=== PATIENT | male | born 1960 | race Two or more races ===

== ENCOUNTER → 2019-02-09 | Outpatient (CLI) | payer BC, OTHER ==
[2019-02-09 14:39] LABS: Alcohol, Urine < 3.0 mg/dL (0-5); Amphetamine Screen, Urine NEGATIVE (NEGATIVE); Barbiturate Scree,Urine NEGATIVE (NEGATIVE); Benzodiazephine Screen, Urine NEGATIVE (NEGATIVE); Cannabinoid Screen, Urine POSITIVE (NEGATIVE); Cocaine Screen, Urine NEGATIVE (NEGATIVE); Opiate Scree,Urine NEGATIVE (NEGATIVE); Phencyclidine Screen, Urine NEGATIVE (NEGATIVE)
== END | disposition home or self-care (01) ==
LOC: LAB 13:53
PROVIDERS: ATTEND Psychiatry & Neurology Neurology
DX: M47.22 Other spondylosis with radiculopathy, cervical region (principal); M50.122 Cervical disc disorder at C5-C6 level with radiculopathy; G62.9 Polyneuropathy, unspecified
CPT/HCPCS: 80307

== ENCOUNTER → 2019-03-25 | Outpatient (CLI) | payer OTHER ==
[2019-03-25 08:41] LABS: Urine WBC None Seen /hpf (0 - 3)
[2019-03-25 09:04] LABS: Urine Bacteria NONE SEEN /hpf (None Seen); Urine Blood Negative /uL (Negative); Urine Specific Gravity 1.011 (1.001-1.035)
[2019-03-25 09:08] LABS: Basophils # (auto) 0.1 uL; Basophils % (auto) 1.1 % (0.0-2.0); Eosinophils # (auto) 0.1 uL; Eosinophils % (auto) 1.7 % (0.0-7.0); Hematocrit 47.9 % (41.0-53.0); Hemoglobin 16.4 g/dL (13.5-17.5); Lymphocytes # (auto) 1.6 uL; Mean Corpuscular Hemoglobin 32.4 pg (28.0-32.0); Mean Corpuscular Hgb Conc. 34.2 g/dL (32.0-36.0); Mean Corpuscular Volume 94.6 fL (80.0-100.0); Monocytes # (auto) 0.6 uL; Neutrophils # (auto) 4.6 uL; Neutrophils % (auto) 65.2 % (37.0-80.0); Nucleated Red Blood Cells % 0.1 %; Platelet Count (auto) 204 10^3/uL (140-450); Red Blood Cells 5.06 10^6/uL (4.5-5.90)
[2019-03-25 09:20] LABS: Albumin 3.8 g/dL (3.4-5.0); Calcium 8.8 mg/dL (8.5-10.1); Potassium 4.1 mmol/L (3.5-5.1)
[2019-03-25 09:25] LABS: BUN/Creatinine Ratio 5.4; Bilirubin, Total 1.1 mg/dL (0.2-1.0); Total Protein 7.4 g/dL (6.4-8.2)
== END | disposition home or self-care (01) ==
LOC: LAB 08:20
PROVIDERS: ATTEND Family Medicine
DX: Z00.00 Encounter for general adult medical examination without abnormal findings (principal); E66.9 Obesity, unspecified; Z83.3 Family history of diabetes mellitus
CPT/HCPCS: 36415; 80053; 80061; 81001; 83036; 84153; 84443; 85025

== ENCOUNTER → 2019-11-27 | Outpatient (CLI) | payer OTHER ==
[2019-11-27 14:22] LABS: Amphetamine Screen, Urine NEGATIVE (NEGATIVE); Barbiturate Scree,Urine NEGATIVE (NEGATIVE); Benzodiazephine Screen, Urine NEGATIVE (NEGATIVE); Cannabinoid Screen, Urine POSITIVE (NEGATIVE); Cocaine Screen, Urine NEGATIVE (NEGATIVE); Opiate Scree,Urine POSITIVE (NEGATIVE); Phencyclidine Screen, Urine NEGATIVE (NEGATIVE)
== END | disposition home or self-care (01) ==
LOC: LAB 12:13
PROVIDERS: ATTEND Psychiatry & Neurology Neurology
DX: G89.4 Chronic pain syndrome (principal)
CPT/HCPCS: 80307

== ENCOUNTER → 2020-08-08 | Outpatient (CLI) | payer OTHER ==
[2020-08-08 11:13] LABS: Alcohol, Urine < 3.0 mg/dL (0-10); Amphetamine Screen, Urine NEGATIVE (NEGATIVE); Barbiturate Scree,Urine NEGATIVE (NEGATIVE); Benzodiazephine Screen, Urine NEGATIVE (NEGATIVE); Cannabinoid Screen, Urine POSITIVE (NEGATIVE); Cocaine Screen, Urine NEGATIVE (NEGATIVE); Phencyclidine Screen, Urine NEGATIVE (NEGATIVE)
[2020-08-08 11:20] LABS: % Iron Saturation 51.4 % (20-55); Opiate Scree,Urine NEGATIVE (NEGATIVE)
[2020-08-08 11:22] LABS: Ferritin 201.9 ng/mL (10-322)
[2020-08-08 11:23] LABS: Folate (Folic Acid) 16.41 ng/mL (5.38-24)
== END | disposition home or self-care (01) ==
LOC: LAB 10:23
PROVIDERS: ATTEND Psychiatry & Neurology Neurology
DX: N41.1 Chronic prostatitis (principal); G62.9 Polyneuropathy, unspecified; D50.9 Iron deficiency anemia, unspecified
CPT/HCPCS: 36415; 80307; 82607; 82728; 82746; 82951; 83540; 83550; 84155; 84165

== ENCOUNTER → 2020-10-31 | Outpatient (CLI) | payer OTHER ==
[2020-10-31 15:43] LABS: Opiate Scree,Urine POSITIVE (NEGATIVE)
[2020-10-31 15:47] LABS: Amphetamine Screen, Urine NEGATIVE (NEGATIVE); Barbiturate Scree,Urine NEGATIVE (NEGATIVE); Benzodiazephine Screen, Urine NEGATIVE (NEGATIVE); Cannabinoid Screen, Urine POSITIVE (NEGATIVE); Cocaine Screen, Urine NEGATIVE (NEGATIVE); Phencyclidine Screen, Urine NEGATIVE (NEGATIVE)
== END | disposition home or self-care (01) ==
LOC: LAB 14:47
PROVIDERS: ATTEND Psychiatry & Neurology Neurology
DX: G89.4 Chronic pain syndrome (principal)
CPT/HCPCS: 80307

== ENCOUNTER → 2021-01-30 | Outpatient (CLI) | payer OTHER ==
[2021-01-30 09:03] LABS: Urine WBC None Seen /hpf (0 - 3)
[2021-01-30 09:16] LABS: Basophils # (auto) 0.1 10 ^3/uL (0-0.2); Eosinophils # (auto) 0.2 10 ^3/uL (0-0.8); Eosinophils % (auto) 3.2 % (0.0-7.0); Hematocrit 44.9 % (41.0-53.0); Hemoglobin 15.1 g/dL (13.5-17.5); Lymphocytes # (auto) 1.7 10 ^3/uL (0.4-5.4); Lymphocytes % (auto) 28.1 % (10.0-50.0); Mean Corpuscular Hemoglobin 31.9 pg (28.0-32.0); Mean Corpuscular Hgb Conc. 33.6 g/dL (32.0-36.0); Mean Corpuscular Volume 94.8 fL (80.0-100.0); Monocytes # (auto) 0.7 10 ^3/uL (0-1.3); Monocytes % (auto) 10.9 % (0.0-12.0); Neutrophils # (auto) 3.5 10 ^3/uL (1.6-8.6); Neutrophils % (auto) 56.8 % (37.0-80.0); Platelet Count (auto) 221 10^3/uL (140-450); Red Blood Cells 4.74 10^6/uL (4.5-5.90); Red Cell Distribution Width 13.9 % (11.8-14.3); White Blood Cell 6.2 10^3/uL (4.4-10.8)
[2021-01-30 09:32] LABS: Urine Bacteria NONE SEEN /hpf (None Seen); Urine Blood Negative /uL (Negative); Urine Specific Gravity 1.013 (1.001-1.035)
[2021-01-30 09:52] LABS: Potassium 4.5 mmol/L (3.5-5.1)
[2021-01-30 10:16] LABS: Albumin 3.6 g/dL (3.4-5.0); BUN/Creatinine Ratio 5.4; Bilirubin, Total 0.9 mg/dL (0.2-1.0); Calcium 8.9 mg/dL (8.5-10.1); Total Protein 6.8 g/dL (6.4-8.2)
== END | disposition home or self-care (01) ==
LOC: LAB 08:33
PROVIDERS: ATTEND Internal Medicine
DX: E53.8 Deficiency of other specified B group vitamins (principal); R73.9 Hyperglycemia, unspecified
CPT/HCPCS: 36415; 80053; 80061; 81001; 82043; 82306; 82607; 83036; 84443; 85025

== ENCOUNTER → 2021-02-06 | Outpatient (CLI) | payer OTHER | END | disposition home or self-care (01) | LOC: LAB 10:59 | PROVIDERS: ATTEND Internal Medicine | DX: E53.8 Deficiency of other specified B group vitamins (principal); R73.9 Hyperglycemia, unspecified | CPT/HCPCS: 82274 ==

== ENCOUNTER → 2021-02-13 | Outpatient (CLI) | payer OTHER ==
[2021-02-13 10:47] LABS: Basophils # (auto) 0.1 10 ^3/uL (0-0.2); Eosinophils # (auto) 0.1 10 ^3/uL (0-0.8); Hematocrit 45.5 % (41.0-53.0); Hemoglobin 15.6 g/dL (13.5-17.5); Lymphocytes # (auto) 2.4 10 ^3/uL (0.4-5.4); Lymphocytes % (auto) 32.6 % (10.0-50.0); Mean Corpuscular Hemoglobin 32.4 pg (28.0-32.0); Mean Corpuscular Hgb Conc. 34.3 g/dL (32.0-36.0); Mean Corpuscular Volume 94.5 fL (80.0-100.0); Monocytes # (auto) 0.7 10 ^3/uL (0-1.3); Monocytes % (auto) 9.2 % (0.0-12.0); Neutrophils % (auto) 55.2 % (37.0-80.0); Nucleated Red Blood Cells % 0.1 %; Platelet Count (auto) 235 10^3/uL (140-450); Red Blood Cells 4.81 10^6/uL (4.5-5.90); Red Cell Distribution Width 13.9 % (11.8-14.3); White Blood Cell 7.3 10^3/uL (4.4-10.8)
[2021-02-13 10:58] LABS: Urine Bacteria NONE SEEN /hpf (None Seen); Urine Blood Negative /uL (Negative); Urine Specific Gravity 1.012 (1.001-1.035); Urine WBC <1 /hpf (0 - 3)
[2021-02-13 11:01] LABS: INR 1.06 (0.9-1.15); Partial Thromboplastin Time 25.5 sec (23.0-31.2)
[2021-02-13 11:24] LABS: Potassium 4.4 mmol/L (3.5-5.1)
[2021-02-13 11:44] LABS: Albumin 3.6 g/dL (3.4-5.0); BUN/Creatinine Ratio 6.4; Bilirubin, Total 0.9 mg/dL (0.2-1.0); Calcium 8.7 mg/dL (8.5-10.1); Total Protein 6.9 g/dL (6.4-8.2)
== END | disposition home or self-care (01) ==
LOC: LAB 10:15
PROVIDERS: ATTEND Internal Medicine
DX: Z01.812 Encounter for preprocedural laboratory examination (principal)
CPT/HCPCS: 36415; 80053; 81001; 85025; 85610; 85730

== ENCOUNTER 2021-03-16 16:47 | Emergency (ER) | payer BC, OTHER ==
[~2021-03-16] VITALS: Ht 170.2 cm; Wt 87.5 kg
[2021-03-16 17:48] LABS: Acetaminophen < 2.0 ug/mL (10-30); Salicylate < 1.7 mg/dL (2.8-20.0)
[2021-03-16 18:33] LABS: Amphetamine Screen, Urine NEGATIVE (NEGATIVE); Barbiturate Scree,Urine NEGATIVE (NEGATIVE); Benzodiazephine Screen, Urine NEGATIVE (NEGATIVE); Cannabinoid Screen, Urine NEGATIVE (NEGATIVE); Cocaine Screen, Urine NEGATIVE (NEGATIVE); Opiate Scree,Urine NEGATIVE (NEGATIVE); Phencyclidine Screen, Urine NEGATIVE (NEGATIVE)
[2021-03-16 20:00] VITALS: BP 110/75
== END 2021-03-16 21:37 | disposition home or self-care (01) ==
LOC: ER 16:47
DX: R45.851 Suicidal ideations (principal); Z20.822 Contact with and (suspected) exposure to COVID-19
CPT/HCPCS: 36415; 80307; 80320; 80329; 87426

== ENCOUNTER 2021-09-16 20:33 | Emergency (ER) | payer BC, MEDICAID, OTHER ==
[~2021-09-16] VITALS: Ht 170.2 cm; Wt 86.2 kg
[2021-09-16] MEDS ORDERED: KETOROLAC TROMETH 60MG/2ML VIAL IM ONE (23:45)
[2021-09-16] MEDS ORDERED: METHOCARBAMOL 500 MG TAB PO ONE (23:45)
[2021-09-17] MEDS ORDERED: MORPHINE SULFATE INJECTION 2 MG/ML SYRG IM ONE (00:45)
[2021-09-17 00:51] VITALS: BP 123/75
== END 2021-09-17 01:31 | disposition home or self-care (01) ==
LOC: ER 20:36
DX: M79.10 Myalgia, unspecified site (principal); M54.16 Radiculopathy, lumbar region; I10 Essential (primary) hypertension; G89.29 Other chronic pain; M54.50 Low back pain, unspecified
CPT/HCPCS: 72131; 93005; 96372; 99285; J1885; J2270

== ENCOUNTER → 2021-09-21 | Outpatient (CLI) | payer MEDICAID ==
[2021-09-21 11:13] LABS: Amphetamine Screen, Urine NEGATIVE (NEGATIVE); Barbiturate Scree,Urine NEGATIVE (NEGATIVE); Benzodiazephine Screen, Urine NEGATIVE (NEGATIVE); Cannabinoid Screen, Urine POSITIVE (NEGATIVE); Cocaine Screen, Urine NEGATIVE (NEGATIVE); Opiate Scree,Urine NEGATIVE (NEGATIVE)
[2021-09-21 11:20] LABS: Phencyclidine Screen, Urine NEGATIVE (NEGATIVE)
== END | disposition home or self-care (01) ==
LOC: LAB 10:41
PROVIDERS: ATTEND Psychiatry & Neurology Neurology
DX: M54.50 Low back pain, unspecified (principal)
CPT/HCPCS: 80307

== ENCOUNTER → 2021-12-15 | Outpatient (CLI) | payer MEDICAID ==
[2021-12-15 11:21] LABS: Alcohol, Urine < 3.0 mg/dL (0-10); Amphetamine Screen, Urine NEGATIVE (NEGATIVE); Barbiturate Scree,Urine NEGATIVE (NEGATIVE); Benzodiazephine Screen, Urine NEGATIVE (NEGATIVE); Cannabinoid Screen, Urine POSITIVE (NEGATIVE); Cocaine Screen, Urine NEGATIVE (NEGATIVE); Opiate Scree,Urine POSITIVE (NEGATIVE); Phencyclidine Screen, Urine NEGATIVE (NEGATIVE)
== END | disposition home or self-care (01) ==
LOC: LAB 10:15
PROVIDERS: ATTEND Psychiatry & Neurology Neurology
DX: M54.50 Low back pain, unspecified (principal)
CPT/HCPCS: 80307

== ENCOUNTER → 2022-01-16 | Outpatient (CLI) | payer MEDICAID ==
[2022-01-16 10:39] LABS: Basophils # (auto) 0 10 ^3/uL (0-0.2); Basophils % (auto) 0.7 % (0.0-2.0); Eosinophils # (auto) 0.3 10 ^3/uL (0-0.8); Eosinophils % (auto) 4.1 % (0.0-7.0); Hematocrit 42.3 % (41.0-53.0); Hemoglobin 14.8 g/dL (13.5-17.5); Lymphocytes # (auto) 2.3 10 ^3/uL (0.4-5.4); Lymphocytes % (auto) 32.3 % (10.0-50.0); Mean Corpuscular Hemoglobin 32.8 pg (28.0-32.0); Mean Corpuscular Volume 93.7 fL (80.0-100.0); Monocytes # (auto) 0.6 10 ^3/uL (0-1.3); Monocytes % (auto) 8.7 % (0.0-12.0); Neutrophils # (auto) 3.8 10 ^3/uL (1.6-8.6); Neutrophils % (auto) 54.2 % (37.0-80.0); Nucleated Red Blood Cells % 0.1 %; Red Blood Cells 4.51 10^6/uL (4.5-5.90); Red Cell Distribution Width 13.3 % (11.8-14.3); White Blood Cell 7.1 10^3/uL (4.4-10.8)
== END | disposition home or self-care (01) ==
LOC: LAB 09:22
DX: F33.0 Major depressive disorder, recurrent, mild (principal); G47.00 Insomnia, unspecified; G89.29 Other chronic pain; F10.10 Alcohol abuse, uncomplicated; F12.10 Cannabis abuse, uncomplicated
CPT/HCPCS: 36415; 82306; 82607; 83036; 84443; 85025

== ENCOUNTER → 2022-03-21 | Outpatient (CLI) | payer MEDICAID ==
[2022-03-21 09:38] LABS: Basophils # (auto) 0.1 10 ^3/uL (0-0.2); Basophils % (auto) 0.8 % (0.0-2.0); Eosinophils # (auto) 0.3 10 ^3/uL (0-0.8); Eosinophils % (auto) 3.9 % (0.0-7.0); Hematocrit 44.8 % (41.0-53.0); Hemoglobin 15.3 g/dL (13.5-17.5); Lymphocytes # (auto) 2.4 10 ^3/uL (0.4-5.4); Lymphocytes % (auto) 32.4 % (10.0-50.0); Mean Corpuscular Hemoglobin 32.3 pg (28.0-32.0); Mean Corpuscular Hgb Conc. 34.2 g/dL (32.0-36.0); Mean Corpuscular Volume 94.4 fL (80.0-100.0); Monocytes # (auto) 0.7 10 ^3/uL (0-1.3); Monocytes % (auto) 9.2 % (0.0-12.0); Neutrophils # (auto) 3.9 10 ^3/uL (1.6-8.6); Neutrophils % (auto) 53.7 % (37.0-80.0); Nucleated Red Blood Cells % 0.1 %; Red Blood Cells 4.75 10^6/uL (4.5-5.90); Red Cell Distribution Width 13.3 % (11.8-14.3); White Blood Cell 7.3 10^3/uL (4.4-10.8)
[2022-03-21 10:14] LABS: Albumin 3.4 g/dL (3.4-5.0); Calcium 8.6 mg/dL (8.5-10.1); Potassium 4.4 mmol/L (3.5-5.1)
[2022-03-21 10:18] LABS: Bilirubin, Total 0.7 mg/dL (0.2-1.0); Total Protein 7.3 g/dL (6.4-8.2)
== END | disposition home or self-care (01) ==
LOC: LAB 09:12
PROVIDERS: ATTEND Internal Medicine
DX: E55.9 Vitamin D deficiency, unspecified (principal)
CPT/HCPCS: 36415; 80053; 80061; 82274; 82306; 84443; 85025

== ENCOUNTER 2022-08-06 07:41 | Inpatient (IN) | payer MEDICAID ==
[2022-08-02 12:00] LABS: Basophils # (auto) 0.1 10 ^3/uL (0-0.2); Eosinophils # (auto) 0.1 10 ^3/uL (0-0.8); Hematocrit 46.8 % (41.0-53.0); Hemoglobin 15.6 g/dL (13.5-17.5); Lymphocytes # (auto) 2.2 10 ^3/uL (0.4-5.4); Lymphocytes % (auto) 27.5 % (10.0-50.0); Mean Corpuscular Hemoglobin 31.7 pg (28.0-32.0); Mean Corpuscular Hgb Conc. 33.3 g/dL (32.0-36.0); Mean Corpuscular Volume 95.3 fL (80.0-100.0); Monocytes # (auto) 0.7 10 ^3/uL (0-1.3); Monocytes % (auto) 8.2 % (0.0-12.0); Neutrophils % (auto) 62.3 % (37.0-80.0); Red Blood Cells 4.91 10^6/uL (4.5-5.90); Red Cell Distribution Width 12.8 % (11.8-14.3); White Blood Cell 8.1 10^3/uL (4.4-10.8)
[2022-08-02 12:05] LABS: Urine Bacteria NONE SEEN /hpf (None Seen); Urine Blood Negative /uL (Negative); Urine Specific Gravity 1.015 (1.001-1.035); Urine WBC <1 /hpf (0 - 3)
[2022-08-02 12:16] LABS: INR 1.02 (0.9-1.15); Partial Thromboplastin Time 26.8 sec (24.6-33.4)
[2022-08-02 12:38] LABS: Albumin 3.4 g/dL (3.4-5.0); Calcium 8.6 mg/dL (8.5-10.1); Potassium 4.1 mmol/L (3.5-5.1)
[2022-08-02 13:20] LABS: BUN/Creatinine Ratio 6.1; Bilirubin, Total 0.6 mg/dL (0.2-1.0)
[2022-08-06] VITALS (11 sets, daily range): BP systolic 108–134; BP diastolic 67–80
[~2022-08-06] VITALS: Ht 170.2 cm; Wt 100.7 kg
[~2022-08-06 07:41] MED LIST: BACL20TA PO; CYAN100060 PO; DULO20CA PO; GABA300C10 PO; PERCOT PO
[2022-08-06] MEDS ORDERED: CELECOXIB 100 MG CAP ONE (07:53)
[2022-08-06] MEDS ORDERED: ACETAMINOPHEN IV 100 ML IV ONE (07:54)
[2022-08-06] MEDS ORDERED: ceFAZolin 1GM/50ML 100 ML IV ONE (07:54)
[2022-08-06] MEDS ORDERED: PREGABALIN CAPSULE 75 MG CAP ONE (07:54)
[2022-08-06] MEDS ORDERED: TRANEXAMIC ACID 20 ML ONE (08:09)
[2022-08-06] MEDS ORDERED: VANCOMYCIN HCL 1000 MG VL ONE (08:13)
[2022-08-06] MEDS ORDERED: MIDAZOLAM HCL 2MG/2ML 2ml VIAL (1mg/ml) ONE (08:23)
[2022-08-06] MEDS ORDERED: fentaNYL CITRATE 100 MCG/2 ML VL ONE (08:23)
[2022-08-06] MEDS ORDERED: EPINEPHrine HCL 1 MG/1 ML AMP ONE (08:23)
[2022-08-06] MEDS ORDERED: MORPHINE SULF PF 5 MG/10 ML VIAL ONE (08:23)
[2022-08-06] MEDS ORDERED: ONDANSETRON HCL 4 MG/2 ML VIAL ONE (08:24)
[2022-08-06] MEDS ORDERED: PROPOFOL 10 MG/ML 20 ML IV ONE ×2 (08:24→11:18)
[2022-08-06] MEDS ORDERED: DexAMETHasone SOD PHOS 10MG/1ML VIAL INJ ONE (08:24)
[2022-08-06] MEDS ORDERED: BUPIVACAINE W/ EPINEPH 0.25% INJ 50ML MDV ONE (09:38)
[2022-08-06] MEDS ORDERED: KETOROLAC TROMETH 30 MG/ML 1ML VIAL ONE (09:39)
[2022-08-06] MEDS ORDERED: HYDROmorphone HCL 2 MG/ML VL/or syr IV PRN ×3 (09:45→11:15)
[2022-08-06] MEDS ORDERED: NALOXONE HCL 0.4 MG/ML VIAL IV PRN (09:45)
[2022-08-06] MEDS ORDERED: diphenhdrAMINE HCL 50 MG/1 ML VL IV PRN (09:45)
[2022-08-06] MEDS ORDERED: MORPHINE SULFATE 4 MG/ML SYR/VIAL IV PRN (09:45)
[2022-08-06] MEDS ORDERED: METOCLOPRAMIDE HCL 5MG/ml INJ 2ml VIAL IV PRN (09:45)
[2022-08-06] MEDS ORDERED: MORPHINE SULFATE INJ 2 MG/ml SYRG IV PRN (11:15)
[2022-08-06] MEDS ORDERED: ACETAMINOPHEN 325 MG TAB PO PRN (11:15)
[2022-08-06] MEDS ORDERED: OXYCODONE W/ ACETAMINOPHEN 5/325MG TABLET PO PRN ×2 (11:15)
[2022-08-06] MEDS ORDERED: BISACODYL 5 MG EC TAB PO PRN (11:15)
[2022-08-06] MEDS: ceFAZolin 1GM/50ML 50 ML IV SCH ×3 (11:15→23:01)
[2022-08-06] MEDS ORDERED: NITROGLYCERIN 0.4 MG SL TAB SL PRN (11:15)
[2022-08-06] MEDS ORDERED: ONDANSETRON HCL 4 MG/2 ML VIAL IV PRN (11:15)
[2022-08-06] MEDS ORDERED: HYDROmorphone HCL 2 MG/ML VL/or syr ONE (15:02)
[2022-08-06] MEDS: LACTATED RINGER'S 1,000 ML IV SCH ×2 (15:30→22:19)
[2022-08-06] MEDS: GABAPENTIN 300 MG CAP PO SCH ×2 (16:30→22:19)
[2022-08-06] MEDS: SODIUM CHLOR 0.9% PF (SALINE LOCK) 10ML VIAL/SYR IV SCH ×2 (16:30→22:19)
[2022-08-06] MEDS: HYDROmorphone HCL 2 MG/ML VL/or syr IV PRN (16:43)
[2022-08-06] MEDS: DOCUSATE SOD 100 MG CAP PO SCH (22:19)
[2022-08-06] MEDS: oxyCODONE ER 10 MG TAB PO SCH (22:24)
[2022-08-07] VITALS (17 sets, daily range): BP systolic 92–158; BP diastolic 61–80
[2022-08-07] MEDS: ceFAZolin 1GM/50ML 50 ML IV SCH (05:10)
[2022-08-07] MEDS: SODIUM CHLOR 0.9% PF (SALINE LOCK) 10ML VIAL/SYR IV SCH ×3 (05:28→22:27)
[2022-08-07] MEDS: GABAPENTIN 300 MG CAP PO SCH ×3 (05:29→22:27)
[2022-08-07] MEDS: HYDROmorphone HCL 2 MG/ML VL/or syr IV PRN ×4 (06:23→22:30)
[2022-08-07 06:40] LABS: Hematocrit 39.6 % (41.0-53.0)
[2022-08-07 06:57] LABS: Albumin 2.7 g/dL (3.4-5.0); Calcium 8.2 mg/dL (8.5-10.1); Potassium 4.7 mmol/L (3.5-5.1)
[2022-08-07 07:00] LABS: Bilirubin, Total 0.4 mg/dL (0.2-1.0); Total Protein 5.9 g/dL (6.4-8.2)
[2022-08-07] MEDS: LACTATED RINGER'S 1,000 ML IV SCH ×3 (07:47→10:45)
[2022-08-07] MEDS: ENOXAPARIN SOD 40 MG/0.4 ML SYRINGE SC SCH (10:12)
[2022-08-07] MEDS: BACLOFEN 10 MG TAB PO SCH (10:13)
[2022-08-07] MEDS: DOCUSATE SOD 100 MG CAP PO SCH ×2 (10:13→22:27)
[2022-08-07] MEDS: oxyCODONE ER 10 MG TAB PO SCH ×2 (10:14→22:28)
[2022-08-07] MEDS ORDERED: DULoxetine HCL 30 MG CAP PO ONE (11:45)
[2022-08-08 05:00] VITALS: BP 139/83
[2022-08-08] MEDS: HYDROmorphone HCL 2 MG/ML VL/or syr IV PRN ×5 (05:25→23:40)
[2022-08-08] MEDS: GABAPENTIN 300 MG CAP PO SCH ×3 (05:33→21:35)
[2022-08-08] MEDS: SODIUM CHLOR 0.9% PF (SALINE LOCK) 10ML VIAL/SYR IV SCH ×3 (05:33→21:33)
[2022-08-08 05:43] LABS: Hematocrit 39.1 % (41.0-53.0); Hemoglobin 13.2 g/dL (13.5-17.5)
[2022-08-08 09:00] VITALS: BP 139/74
[2022-08-08] MEDS: DULoxetine HCL 30 MG CAP PO SCH (09:30)
[2022-08-08] MEDS: oxyCODONE ER 10 MG TAB PO SCH ×2 (09:30→21:36)
[2022-08-08] MEDS: BACLOFEN 10 MG TAB PO SCH (09:31)
[2022-08-08] MEDS: ENOXAPARIN SOD 40 MG/0.4 ML SYRINGE SC SCH (09:31)
[2022-08-08] MEDS: DOCUSATE SOD 100 MG CAP PO SCH ×2 (09:39→21:35)
[2022-08-08 13:00] VITALS: BP 116/67
[2022-08-08 17:13] VITALS: BP 121/83
[2022-08-08 22:00] VITALS: BP 136/78
[2022-08-09] MEDS: SODIUM CHLOR 0.9% PF (SALINE LOCK) 10ML VIAL/SYR IV SCH ×2 (05:22→14:07)
[2022-08-09] MEDS: GABAPENTIN 300 MG CAP PO SCH ×2 (05:23→14:08)
[2022-08-09 05:30] VITALS: BP 116/71
[2022-08-09 06:32] LABS: Hematocrit 40.1 % (41.0-53.0); Hemoglobin 13.5 g/dL (13.5-17.5)
[2022-08-09] MEDS: BACLOFEN 10 MG TAB PO SCH (10:01)
[2022-08-09] MEDS: DULoxetine HCL 30 MG CAP PO SCH (10:01)
[2022-08-09] MEDS: DOCUSATE SOD 100 MG CAP PO SCH (10:01)
[2022-08-09] MEDS: oxyCODONE ER 10 MG TAB PO SCH (10:01)
[2022-08-09] MEDS: ENOXAPARIN SOD 40 MG/0.4 ML SYRINGE SC SCH (10:02)
[2022-08-09] MEDS: HYDROmorphone HCL 2 MG/ML VL/or syr IV PRN (10:15)
[2022-08-09 10:37] VITALS: BP 130/67
[2022-08-09 12:18] VITALS: BP 121/76
== END 2022-08-09 16:20 | disposition home health service (06) | DRG 326 ==
LOC: SUR 07:41 → OVERFLOW 11:11 → TELE 12:15 → TELE-EAST 15:54 → EAST 08-07 11:04
PROVIDERS: ADMIT Orthopaedic Surgery Adult Reconstructive Orthopaedic Surgery; ATTEND Family Medicine
PROC: 8E0YXBZ Computer Assisted Procedure of Lower Extremity (ICD-10-PCS; 2022-08-06)
PROC: 0SRC0J9 Replacement of Right Knee Joint with Synthetic Substitute, Cemented, Open Approach (ICD-10-PCS; principal; 2022-08-06 09:45)
DX: M17.11 Unilateral primary osteoarthritis, right knee (principal); E66.9 Obesity, unspecified; F32.A Depression, unspecified; Z20.822 Contact with and (suspected) exposure to COVID-19; G62.9 Polyneuropathy, unspecified; Z68.35 Body mass index [BMI] 35.0-35.9, adult
CPT/HCPCS: 36415; 73562; 80053; 81001; 83036; 85014; 85018; 85025; 85610; 85730; 86850; 86900; 86901; 94762; 97110; 97116; 97530; G0378; J0131; J0171; J0690; J1100; J1885; J2250; J2405; J2704

== ENCOUNTER → 2022-10-08 | Outpatient (CLI) | payer MEDICAID ==
[2022-10-08 14:07] LABS: Alcohol, Urine < 3.0 mg/dL (0-10); Amphetamine Screen, Urine NEGATIVE (NEGATIVE); Barbiturate Scree,Urine NEGATIVE (NEGATIVE); Benzodiazephine Screen, Urine NEGATIVE (NEGATIVE); Cannabinoid Screen, Urine POSITIVE (NEGATIVE); Cocaine Screen, Urine NEGATIVE (NEGATIVE); Opiate Scree,Urine NEGATIVE (NEGATIVE); Phencyclidine Screen, Urine NEGATIVE (NEGATIVE)
== END | disposition home or self-care (01) ==
LOC: LAB 10:27
PROVIDERS: ATTEND Psychiatry & Neurology Neurology
DX: L13.0 Dermatitis herpetiformis (principal)
CPT/HCPCS: 80307